=== PATIENT | male | born 1990 | race Caucasian/White ===

== ENCOUNTER 2021-07-29 09:37 | Emergency (ER) | payer OTHER ==
[~2021-07-29] VITALS: Ht 188 cm; Wt 158.3 kg
[2021-07-29] MEDS ORDERED: Naprosyn500 MG PO (11:05)
[2021-07-29] MEDS ORDERED: Norco 5-325 Ta1 EACH PO (11:05)
[2021-07-29] MEDS ORDERED: Prednisone20 MG PO (11:05)
== END 2021-07-29 11:16 | disposition home or self-care (01) ==
LOC: ER 09:37
DX: M25.572 Pain in left ankle and joints of left foot (principal); Z87.891 Personal history of nicotine dependence
CPT/HCPCS: 73610; 99283-25